=== PATIENT | female | born 1975 | race Two or more races ===

== ENCOUNTER 2024-06-25 12:59 | Inpatient (IN) | payer OTHER ==
[~2024-06-25] VITALS: Ht 162.6 cm; Wt 97.5 kg
--- NOTE | 2024-06-25 13:14 | NUR ---
SE RECIBE PACIENTE ALERTA Y ORIENTADA X3 LA CUAL REFIERE VENIR POR DOLOR ABDOMINAL. PTE REFIERE QUE RUDOLPH DOCTORA GASTROENTEROLOGA CARINE DING LE RECOMENDO QUE PASARA POR JHONATAN DE EMERGENCIA. SE MIDEN S/V Y SE UBICA.
[2024-06-25] MEDS ORDERED: FAMOTIDINE/PF 20 MG in 0.9 % SODIUM CHLORIDE 8 ML IV PUSH STA (13:40)
[2024-06-25] MEDS ORDERED: 0.9 % SODIUM CHLORIDE 1,000 ML IV SCH ×2 (13:45→18:45)
[2024-06-25] MEDS ORDERED: ONDANSETRON HCL 2 MG/ML VIAL IV ONE (13:45)
[2024-06-25] MEDS ORDERED: KETOROLAC TROMETHAMINE 30 MG VIAL IV ONE (13:45)
[2024-06-25] MEDS ORDERED: PIPERACILLIN/TAZOBACTAM SODIUM 3.375 GM VIAL IV ONE ×2 (13:45→13:46)
[2024-06-25] MEDS ORDERED: KETOROLAC TROMETHAMINE 30 MG VIAL ONE (13:46)
[2024-06-25] MEDS ORDERED: ONDANSETRON HCL 2 MG/ML VIAL ONE ×2 (13:46→21:54)
[2024-06-25] MEDS ORDERED: FAMOTIDINE/PF 20 MG/2 ML VIAL ONE (13:46)
--- NOTE | 2024-06-25 13:58 | NUR ---
PACIENTE EVALUADO POR DR. CHAUDHARY QUIEN [place] [facility], RN ZHANG EDUCA ACERCA DEL MISMO Y REFIERE ENTENDER. SE CANALIZA Y COLECTAN MUESTRAS DE LABORATORIO. SE ADMINISTRAN MEDICAMENTOS DOC ORDEN MEDICA.
[2024-06-25 14:42] LABS: HEMATOCRIT 39.8 % (36.0-45.00); MEAN CELL VOLUME 78.6 fL (80.00-100.00); MEAN CORPUSCULAR HEMOGLOBIN 25.6 pg (27.00-32.0); MEAN CORPUSCULAR HGB CONC 32.6 g/dl (32.0-36.0); PLATELET COUNT 393 K/uL (150-450); RED BLOOD COUNT 5.06 M/uL (4.00-6.00); RED CELL DISTRIBUTION WIDTH 15.2 % (11.5-14.5)
[2024-06-25 15:06] LABS: ALBUMIN 3.2 gm/dL (3.4-5.0); BILIRUBIN TOTAL 0.4 mg/dL (0.3-1.2); CREATININE SERUM 0.72 mg/dL (0.55-1.02); GFR 85.74; GLOBULINA 6.5 G/DL (2.4-3.5); POTASSIUM 3.9 mEq/L (3.5-5.1); TOTAL PROTEIN 9.7 gm/dL (6.4-8.2)
[2024-06-25] MEDS ORDERED: MORPHINE SULFATE 4 MG/ML CARTRIDGE IV SCH (18:45)
[2024-06-25] MEDS ORDERED: ACETAMINOPHEN 500 MG GEL..CAP PO PRN (18:45)
[2024-06-25] MEDS ORDERED: ONDANSETRON HCL 4 MG in 0.9 % SODIUM CHLORIDE 50 ML IV PRN (19:00)
[2024-06-25 23:32] LABS: INR 1.2; PARTIAL THROMBOPLASTIN TIME 36.5 SECONDS (22.0-34.0); PROTHROMBIN TIME 12.9 SECONDS (9.0-11.5)
[2024-06-26] MEDS ORDERED: PIPERACILLIN/TAZOBACTAM SODIUM 3.375 GM in DEXTROSE 5 % IN WATER 100 ML IV SCH
[2024-06-26] MEDS ORDERED: PIPERACILLIN/TAZOBACTAM SODIUM 3.375 GM VIAL IV ONE ×2 (00:10→04:45)
[2024-06-26 00:28] VITALS: BP 109/72; O2SAT 98
[2024-06-26] MEDS ORDERED: FAMOTIDINE/PF 20 MG/2 ML VIAL ONE (03:07)
[2024-06-26 07:00] VITALS: BP 108/76; O2SAT 97
[2024-06-26] MEDS ORDERED: FAMOTIDINE/PF 20 MG in 0.9 % SODIUM CHLORIDE 8 ML IV PUSH SCH (09:00)
[2024-06-26 12:24] LABS: URINE APPEARANCE Clear; URINE BILIRRUBIN Negative (NEGATIVE); URINE BLOOD Negative; URINE COLOR Yellow; URINE GLUCOSE Negative (NEGATIVE); URINE LEUKOCYTE Negative; URINE NITRATE Negative; URINE PROTEIN Trace (NEGATIVE)
[2024-06-26 12:27] LABS: URINE BACTERIA 118.4 uL (0.0-1933); URINE EPITHELIAL CELLS 13.2 uL (0.0-38.8); URINE RBC 5.3 uL (0.0-20.8); URINE WBC 19.7 uL (0.0-23.2)
[2024-06-26 12:29] LABS: URINE CAST 0.45 uL (0.0-1.40); URINE KETONE 80 (NEGATIVE)
[2024-06-26 15:52] VITALS: BP 109/69; O2SAT 99
[2024-06-26] MEDS ORDERED: MULTIVIT INFUSN,ADULT 4,VIT K 10 ML VIAL IV SCH (17:28)
[2024-06-26] MEDS ORDERED: DEXTROSE 5 % AND 0.9 % NACL 1,000 ML IV SCH (17:30)
[2024-06-26 18:24] VITALS: BP 125/69; O2SAT 97
[2024-06-26] MEDS ORDERED: MORPHINE SULFATE 4 MG/ML CARTRIDGE IV PRN (21:00)
[2024-06-27 02:21] VITALS: BP 108/66; O2SAT 96
[2024-06-27 08:17] VITALS: BP 108/67
[2024-06-27] MEDS ORDERED: LACTOBACILLUS ACIDOPHILUS 1 CAP CAP PO SCH (09:00)
[2024-06-27 17:13] VITALS: BP 112/52
[2024-06-28 00:52] VITALS: BP 93/54; O2SAT 94
[2024-06-28 07:46] VITALS: BP 98/65
[2024-06-28 09:39] LABS: HEMATOCRIT 31.5 % (36.0-45.00); HEMOGLOBIN 10.2 g/dL (12.0-15.00); MEAN CELL VOLUME 78.1 fL (80.00-100.00); MEAN CORPUSCULAR HEMOGLOBIN 25.2 pg (27.00-32.0); MEAN CORPUSCULAR HGB CONC 32.3 g/dl (32.0-36.0); PLATELET COUNT 305 K/uL (150-450); RED BLOOD COUNT 4.03 M/uL (4.00-6.00)
[2024-06-28 09:46] LABS: ERYTHROCYTE SEDIMENTATION RATE 98 mm/hr
[2024-06-28 11:10] LABS: ALBUMIN 2.1 gm/dL (3.4-5.0); BILIRUBIN TOTAL 0.26 mg/dL (0.3-1.2); C-REACTIVE PROTEIN 13.4 MG/DL (0.00-0.29); CALCIUM 8.4 mg/dL (8.5-10.1); CREATININE SERUM 0.62 mg/dL (0.55-1.02); GFR 101.89; GLOBULINA 3.7 G/DL (2.4-3.5); POTASSIUM 4.72 mEq/L (3.5-5.1); TOTAL PROTEIN 5.8 gm/dL (6.4-8.2)
[2024-06-28 18:06] VITALS: BP 101/52
[2024-06-28] MEDS ORDERED: DEXTROSE 5%-WATER 100ML IV.SOLN ONE (23:29)
[2024-06-29 01:06] VITALS: BP 105/51; O2SAT 98
[2024-06-29] MEDS ORDERED: FAMOTIDINE/PF 20 MG/2 ML VIAL ONE (08:31)
[2024-06-29 09:13] VITALS: BP 127/74; O2SAT 96
[2024-06-29 16:41] VITALS: BP 157/80
[2024-06-30 01:55] VITALS: BP 108/53
[2024-06-30] MEDS ORDERED: PIPERACILLIN/TAZOBACTAM SODIUM 3.375 GM VIAL IV ONE (07:51)
[2024-06-30] MEDS ORDERED: FAMOTIDINE/PF 20 MG/2 ML VIAL ONE (07:52)
[2024-06-30 08:17] VITALS: BP 128/63
[2024-06-30 16:00] VITALS: BP 129/88; O2SAT 98
[2024-07-01 01:33] VITALS: BP 147/87
[2024-07-01 09:18] VITALS: BP 139/75
[2024-07-01 16:00] VITALS: BP 127/69; O2SAT 100
[2024-07-02 02:11] VITALS: BP 141/77; O2SAT 97
[2024-07-02 08:21] VITALS: BP 150/69; O2SAT 98
[2024-07-02] MEDS ORDERED: FAMOTIDINE/PF 20 MG/2 ML VIAL IV STA (09:48)
[2024-07-02] MEDS ORDERED: INTESTINEX680 M1 PO (15:29)
[2024-07-02] MEDS ORDERED: AMOX1TAB5 PO (15:29)
[2024-07-03] MEDS ORDERED: FAMOTIDINE/PF 20 MG/2 ML VIAL IV SCH (09:00)
== END 2024-07-02 15:51 | disposition home or self-care (01) | DRG 392 ==
LOC: ER 13:00 → SEC-K 20:03 → MEDJ 20:03
PROVIDERS: General Practice; ADMIT Internal Medicine; ATTEND Internal Medicine
PROC: BW21ZZZ Computerized Tomography (CT Scan) of Abdomen and Pelvis (ICD-10-PCS; principal; 2024-06-25)
DX: K57.32 Diverticulitis of large intestine without perforation or abscess without bleeding (principal)